=== PATIENT | female | born 1940 | race Caucasian/White ===

== ENCOUNTER 2019-10-04 01:49 | Outpatient (RCR) | payer MEDICARE, BC, SELFPAY ==
[2019-09-20] VITALS (9 sets, daily range): BP systolic 138–179; BP diastolic 79–98; PULSE 86–107; RESP 18–19; TEMP 36–37.1; O2SAT 96–99
[2019-09-20] MEDS: Normal Saline Flush 10 ML SYR IVP (08:52)
[2019-09-20] MEDS: Acetaminophen 325 MG TAB 650 MG PO (09:14)
[2019-09-20] MEDS: methylPREDNISolone SUCC 125 MG VIAL IV (09:14)
[2019-09-20] MEDS: diphenhydrAMINE 50 MG/ML VIAL 25 MG IV (09:14)
[2019-10-04] MEDS: Acetaminophen 325 MG TAB 650 MG PO (09:27)
[2019-10-04] MEDS: Normal Saline Flush 10 ML SYR IVP (09:28)
[2019-10-04] MEDS: diphenhydrAMINE 50 MG/ML VIAL 25 MG IV (09:28)
[2019-10-04] MEDS: methylPREDNISolone SUCC 125 MG VIAL IV (09:28)
[2019-10-04 09:41] VITALS: BP 157/81; PULSE 86; RESP 18; TEMP 36.5; O2SAT 100
[2019-10-04 09:49] VITALS: BP 150/81; PULSE 80; RESP 18; TEMP 36.5; O2SAT 100
[2019-10-04 10:19] VITALS: BP 161/75; PULSE 69; RESP 18; TEMP 36; O2SAT 100
[2019-10-04 10:49] VITALS: BP 149/81; PULSE 71; RESP 18; TEMP 36.1; O2SAT 99
== END 2019-10-16 23:59 | disposition home or self-care (01) ==
LOC: INF 01:49
PROVIDERS: Visit Provider Internal Medicine
DX: N04.0 Nephrotic syndrome with minor glomerular abnormality (principal)
CPT/HCPCS: 96365; 96366; 96374; 96413; 96415; J1200; J2930; J9312